=== PATIENT | female | born 1990 | race Hispanic/Latino ===

== ENCOUNTER 2020-04-27 07:13 | Inpatient (IN) | payer BC ==
[~2020-04-27] VITALS: Ht 157.5 cm; Wt 68.5 kg
[2020-04-27] MEDS ORDERED: NALOXONE HCL 0.4 MG/1 ML ML IV PRN (07:45)
[2020-04-27] MEDS ORDERED: PROMETHAZINE HCL 25 MG/ML 1ML AMPULE IM PRN (07:45)
[2020-04-27] MEDS ORDERED: ROPIVACAINE 0.2% 100ML VIAL 100 ML EP SCH (07:45)
[2020-04-27] MEDS ORDERED: LACTATED RINGERS 500 ML 500 ML IV PRN (07:45)
[2020-04-27] MEDS ORDERED: AMPICILLIN 2GM+NS 100ML 100 ML IV SCH (07:45)
[2020-04-27] MEDS ORDERED: EPHEDRINE SULFATE 50 MG/ML AMPULE IVP PRN (07:45)
[2020-04-27] MEDS ORDERED: DINOPROSTONE 10 MG VAGINAL SUPP VG SCH (07:45)
[2020-04-27] MEDS ORDERED: MEPERIDINE-PF 50 MG/ML SYG IVP PRN (07:45)
[2020-04-27 09:11] LABS: HEMATOCRIT 36.4 % (36-48); MEAN CORPUSCULAR HEMOGLOBIN 32.3 pg (27.0-33.0); MEAN CORPUSCULAR HGB CONC 33.2 g/dL (32.0-36.0); MEAN CORPUSCULAR VOLUME 97.1 fL (79-99); RED BLOOD CELL COUNT(AUTO) 3.75 MIL/uL (4.00-5.50); RED CELL DISTRIBUTION WIDTH 13.6 % (11.0-15.5); WHITE BLOOD COUNT (AUTO) 7.2 K/uL (4.8-10.8)
[2020-04-27 09:44] LABS: APPEARANCE,URINE Cloudy (CLEAR); BILIRUBIN,URINE Negative (NEGATIVE); COLOR,URINE Yellow (YELLOW); GLUCOSE, URINE (UA) Negative (NEGATIVE); KETONES,URINE 15 mg/dL (NEGATIVE); LEUKOCYTE ESTERASE ,URINE Small (NEGATIVE); NITRATE,URINE Negative (NEGATIVE); OCCULT BLOOD,URINE Negative (NEGATIVE); PROTEIN,URINE POS 1+ mg/dL (NEGATIVE)
[2020-04-27 10:04] LABS: RBC,URINE 0-1 /HPF (0-1)
[2020-04-27 10:07] LABS: SQUAMOUS EPITHELIAL CELL,UR Few /HPF (0-2)
[2020-04-27 10:08] LABS: MUCUS,URINE Few LPF (None Seen)
[2020-04-27 10:09] LABS: AMORPHOUS SEDIMENT,UR Few /LPF (None Seen); BACTERIA,URINE Few /HPF (None Seen)
[2020-04-27] MEDS: AMPICILLIN 1GM+NS 50ML 50 ML IV SCH ×3 (12:57→20:44)
[2020-04-27] MEDS: LACTATED RINGERS 1000ML 1,000 ML IV PRN ×2 (16:59→22:48)
[2020-04-27] MEDS ORDERED: OXYTOCIN-LR 20 UNITS/1000 ML 1,000 ML IV SCH (21:45)
[2020-04-27] MEDS ORDERED: PREN1TAB80 PO (22:50)
[2020-04-28] MEDS: LACTATED RINGERS 1000ML 1,000 ML IV PRN (00:16)
[2020-04-28] MEDS: AMPICILLIN 1GM+NS 50ML 50 ML IV SCH ×2 (00:16→20:30)
[2020-04-28] MEDS ORDERED: MISOPROSTOL 200 MCG TABLET ONE (00:39)
[2020-04-28 07:35] VITALS: BP 114/67
[2020-04-28] MEDS ORDERED: ACETAMINOPHEN-CODEINE 300/30MG TAB PO PRN (07:45)
[2020-04-28] MEDS ORDERED: BENZOCAINE/LANOLIN/ALOE VERA 60 ML AEROSOL TP PRN (07:45)
[2020-04-28] MEDS ORDERED: WITCH HAZEL 1 PAD TP PRN (07:45)
[2020-04-28] MEDS ORDERED: MEASLES/MUMPS/RUBELLA VACCINE, LIVE 0.5 ML/VIAL SQ PRN (07:45)
[2020-04-28] MEDS ORDERED: LANOLIN 30GM OINTMENT TP PRN (07:45)
[2020-04-28] MEDS ORDERED: DIPH,PERTUSS(ACELL),TET VAC/PF 0.5 ML VIAL IM PRN (07:45)
[2020-04-28] MEDS ORDERED: ACETAMINOPHEN 325 MG TAB PO PRN (07:45)
[2020-04-28 08:13] LABS: HEPATITIS Bs ANTIGEN SCREEN P Negative (Negative)
[2020-04-28] MEDS: DOCUSATE SODIUM 100 MG CAP PO SCH ×2 (08:52→20:27)
[2020-04-28] MEDS: IBUPROFEN 600 MG TABLET PO PRN ×2 (08:53→16:22)
[2020-04-28 11:27] VITALS: BP 119/64
--- NOTE | 2020-04-28 15:30 | NUR ---
ILENE spoke with pt. who reported that this is her first , delivery and has named BB Jose [place]. Pt. is to Yannick Von who is at bedside and who will assist with BB post discharge. 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 Pt. denies any history of depression and is able to verbalize an understanding of PPD; signs/symptoms and when to seek assistance. Pt. reports a history of anxiety two years ago, denied medications and reports was able to control with relaxation and breathing techniques taught to her. Pt. reports a strong support system among her mother and sister who are both in the medical field. Pt. denies any history of domestic violence, substance use, tobacco or etoh use; there are no smokers in the home. All utilities reportedly connected in the home, pt is insured under [employer] and carseat is in place along with all other baby necessities. [employer] will be Dr. Cuevas and transportation home will be provided by spouse. Pt. denied any SS needs or concerns. Pt. and baby boy to be discharged home when medically cleared. Addendum: 04/28/20 at 1540 by CECI ANDRADE Amended: Links added.
[2020-04-28 16:25] VITALS: BP 100/54
[2020-04-28 19:49] VITALS: BP 106/66
[2020-04-28 23:28] VITALS: BP 92/52
[2020-04-29] MEDS: AMPICILLIN 1GM+NS 50ML 50 ML IV SCH ×2 (00:30→04:30)
[2020-04-29 03:50] VITALS: BP 112/57
[2020-04-29 07:15] LABS: HEMATOCRIT 33.8 % (36-48); MEAN CORPUSCULAR HGB CONC 32.8 g/dL (32.0-36.0); MEAN CORPUSCULAR VOLUME 97.4 fL (79-99); RED BLOOD CELL COUNT(AUTO) 3.47 MIL/uL (4.00-5.50); RED CELL DISTRIBUTION WIDTH 13.8 % (11.0-15.5); WHITE BLOOD COUNT (AUTO) 11.9 K/uL (4.8-10.8)
[2020-04-29 07:24] VITALS: BP_SYST 130; BP_SYST 142; BP_DIAS 75; BP_DIAS 78
[2020-04-29] MEDS: DOCUSATE SODIUM 100 MG CAP PO SCH (09:51)
[2020-04-29] MEDS: IBUPROFEN 600 MG TABLET PO PRN (09:52)
[2020-04-29 10:31] VITALS: BP 114/87
--- NOTE | 2020-04-29 14:05 | NUR ---
DISCHARGE PT LEFT UNIT VIA WHEELCHAIR, WITH BABY IN ARMS, ACCOMPANIED BY SIGNIFICANT OTHER. DENIED PAIN AND HAD NO COMPLAINTS. BABY STRAPPED IN CAR SEAT. PT AND BABY TRANSPORTED BY PERSONAL VEHICLE.
== END 2020-04-29 14:05 | disposition home or self-care (01) | DRG 807 ==
LOC: OBSVTOIN 07:13 → LDH 07:13 → WSH 04-28 07:30
PROVIDERS: ADMIT Internal Medicine; ATTEND Internal Medicine
PROC: 10E0XZZ Delivery of Products of Conception, External Approach (ICD-10-PCS; principal; 2020-04-27)
PROC: 0KQM0ZZ Repair Perineum Muscle, Open Approach (ICD-10-PCS; 2020-04-27)
PROC: 3E033VJ Introduction of Other Hormone into Peripheral Vein, Percutaneous Approach (ICD-10-PCS; 2020-04-27)
PROC: 3E0234Z Introduction of Serum, Toxoid and Vaccine into Muscle, Percutaneous Approach (ICD-10-PCS; 2020-04-27)
PROC: 3E0134Z Introduction of Serum, Toxoid and Vaccine into Subcutaneous Tissue, Percutaneous Approach (ICD-10-PCS; 2020-04-27)
PROC: 3E0R3BZ Introduction of Anesthetic Agent into Spinal Canal, Percutaneous Approach (ICD-10-PCS; 2020-04-27)
PROC: 00HU33Z Insertion of Infusion Device into Spinal Canal, Percutaneous Approach (ICD-10-PCS; 2020-04-27)
DX: O99.824 Streptococcus B carrier state complicating childbirth (principal); Z37.0 Single live birth; O70.1 Second degree perineal laceration during delivery; Z3A.39 39 weeks gestation of pregnancy; Z23 Encounter for immunization
CPT/HCPCS: 36415; 81001; 85027; 86592; 86850; 86900; 86901; 87340; 90707; 96360; 96361; A4314; G0378; J0290; J2175; J2550; J2590; J2795; J7120